=== PATIENT | female | born 1985 | race African-American/Black ===

== ENCOUNTER 2016-03-02 09:26 | Emergency (ER) | payer SELFPAY ==
[~2016-03-02] VITALS: Ht 162.6 cm; Wt 50.0 kg
[2016-03-02 09:29] VITALS: BP 114/64; PULSE 96; RESP 16; TEMP 97.8; O2SAT 98
--- NOTE | 2016-03-02 09:40 | PD ---
HPI Chief Complaint: Wound/Suture/Staple Re-Check Time Seen by Provider: 09:37 Travel History International Travel<30 days: No Contact w/Intl Traveler<30days: No Traveled to known affect area: No History of Present Illness HPI Patient comes in for suture removal. Sutures were placed 7 days ago. Patient denies any complaints or concerns with the sutures. States she been keeping them dry and clean as possible using soap and water. PFSH Past Medical History Medical History: Denies Significant Hx ?: Not Social History Alcohol Use: Yes Tobacco Use: Yes Substance Use: Yes Allergies-Medications (Allergen,Severity, Reaction): Coded Allergies: No Known Allergies (Unverified , 03/02/16) Reported Meds & Prescriptions Reported Meds & Active Scripts Active No Active Prescriptions or Reported Medications Review of Systems Except as stated in HPI: all other systems reviewed are Neg Physical Exam Narrative GENERAL: Well-developed, well nourished, in no acute distress, and non-ill appearing. SKIN: Warm and dry. Well healing wound noted frontal lobe with scalp nigel and sutures are dry clean intact. There is minimal scabbing. There is no signs of infection. HEAD: Normocephalic. EYES: Pupils equal and round. EOMI. No scleral icterus. No injection or drainage. ENT: No nasal bleeding or discharge. Mucous membranes pink and moist. NECK: Trachea midline. Supple. No nuclear rigidity. RESPIRATORY: No accessory muscle use. No respiratory distress. MUSCULOSKELETAL: No obvious deformities. No clubbing. No cyanosis. No edema. Full range of motion. NEUROLOGICAL: Awake and alert. No obvious cranial nerve deficits. Motor grossly within normal limits. Normal speech. PSYCHIATRIC: Appropriate mood and affect; insight and judgment normal. Data Data Last Documented VS Vital Signs Date Time Temp Pulse Resp B/P Pulse Ox O2 Delivery O2 Flow Rate FiO2 03/02/16 09:29 97.8 96 16 114/64 98 Room Air MDM Medical Decision Making Medical Screen Exam Complete: Yes Emergency Medical Condition: No Differential Diagnosis Wound check, suture removal, wound infection, other Narrative Course Sutures and nigel were removed by nurse. Patient in no obvious distress upon re-evaluation. Any questions/concerns in reference to patient diagnosis/condition discussed and clarified prior to patient's discharge. Reinforced sheer importance of close follow up with patient 's primary physician or primary care clinic. Instructed patient to return to ED immediately, if symptoms return/worsen. Pt showed understanding of above instructions. Further instructions and recommendations were detailed in discharge paperwork. Pt ambulated without difficulty out of ED at discharge. Diagnosis Primary Impression: Visit for suture removal Patient Instructions: Acute Wound Care (ED), General Instructions, Stitches Removal (DC) Additional Instructions: Follow-up with your primary care physician this week for reevaluation. Follow- up with plastic surgeon for scar revision in the future if desired.. Keep wound dry and clean as possible using soap and water. Use Neosporin to promote healing. Avoid exposing wound to the sun to decrease visibility of the scar. Return to the emergency department if symptoms get worse. Scripts No Active Prescriptions or Reported Meds Disposition: 01 DISCHARGE HOME Condition: Stable Jorge Chavarria Mar 02, 2016 09:40
== END 2016-03-02 10:26 | disposition home or self-care (01) ==
LOC: NEPB 09:26
DX: Z48.02 Encounter for removal of sutures (principal)
CPT/HCPCS: 99281